=== PATIENT | female | born 1935 | race Caucasian/White ===

== ENCOUNTER 2016-07-28 10:13 | Emergency (ER) | payer OTHER ==
[~2016-07-28] VITALS: Ht 162.6 cm; Wt 97.7 kg
[~2016-07-28 10:13] MED LIST: CARVEDILOL12.5 MG; CYCLOBENZAPRINE5 MG PO; CYMBALTA30 MG PO; FOLIC ACID1 MG PO; FUROSEMIDE40 MG PO; KLOR-CON M2020 MEQ PO; LISINOPRIL10 MG; NEXIUM40 MG PO; PRILOSEC20 MG PO; PROMETHAZINE HC25 M1 PO; RANITIDINE HCL150 M1 PO; SYNTHROID75 MCG; TRAMADOL HCL50 MG PO
[2016-07-28 12:11] LABS: HEMATOCRIT 38.8 % (36.0-46.0); MCH 27.1 PG (29.0-34.0); MCHC 30.9 G/DL (30.0-36.0); MCV 87.6 FL (83-99); MEAN PLAT.VOLUME 10.4 uM^3 (9.5-12.4); PLATELET COUNT 106 K/uL (156-360); RBC DIS.WIDTH-CV 16.8 % (11.8-14.6); RBC DIS.WIDTH-SD 53.7 % (39-53); RED BLOOD COUNT 4.43 M/uL (3.80-5.20); WHITE BLOOD COUNT 5.7 K/uL (4.1-10.2)
[2016-07-28 12:11] LABS: ADD MIUA? YES; BILIRUBIN NEGATIVE; BLOOD SMALL; COLOR YELLOW ((YELLOW)); GLUCOSE (STRIP) NEGATIVE; KETONES NEGATIVE; LEUKOCYTES TRACE; NITRITE POSITIVE; PROTEIN (STRIP) NEGATIVE; SPECIFIC GRAVITY 1.017 (1.000-1.030); UROBILINOGEN 0.2 MG/DL (0.2-1.0)
[2016-07-28 12:38] LABS: BACTERIA 3+ /HPF; CALCIUM OXALATE CRYSTALS 2+ /HPF; EPITHELIAL CELLS 1+ /HPF; MUCUS TRACE /LPF; UCUL ADDED? YES; WHITE BLOOD CELLS 20-30 /HPF (0-5)
[2016-07-28 12:41] LABS: ANION GAP 10 MEQ/L (2-14); CHLORIDE 102 MEQ/L (99-109); DIRECT BILIRUBIN 0.1 mg/dL (0.0-0.3); SAMPLE HEMOLYSIS CHECK 1; SAMPLE ICTERIC CHECK 0; SAMPLE LIPEMIA CHECK 0; SODIUM 138 MEQ/L (136-147); TOTAL BILIRUBIN 0.6 MG/DL (0.0-1.0)
[2016-07-28 12:42] LABS: POTASSIUM 4.6 MEQ/L (3.7-5.4)
[2016-07-28 12:47] LABS: ALKALINE PHOSPHATASE 92 IU/L (3-129); GFR ESTIMATE (CALCULATED) > 59 mL/min/; GLUCOSE 111 mg/dL (70-99); LIPASE 7 U/L (1.0-51.0); UREA NITROGEN (BUN) 14 mg/dL (9-23)
[2016-07-28] MEDS ORDERED: [UNRECOGNIZED DRUG - OTHER] (14:42)
[2016-07-28] MEDS ORDERED: LEVAQUIN750 MG PO (14:42)
[2016-07-28 15:20] VITALS: BP 158/70
== END 2016-07-28 15:21 | disposition home or self-care (01) ==
LOC: EME → EDBD 10:13 → EME 15:21
PROVIDERS: Emergency Medicine
DX: J18.9 Pneumonia, unspecified organism (principal); N39.0 Urinary tract infection, site not specified; K92.2 Gastrointestinal hemorrhage, unspecified; R19.7 Diarrhea, unspecified; R42 Dizziness and giddiness; I10 Essential (primary) hypertension; G89.29 Other chronic pain; Z79.891 Long term (current) use of opiate analgesic; Z87.891 Personal history of nicotine dependence; Z95.1 Presence of aortocoronary bypass graft; Z95.4 Presence of other heart-valve replacement
CPT/HCPCS: 71010; 74177; 80048; 80076; 81003; 83605; 83690; 85027; 87040; 87077; 87086; 87186; 87493; 94640; 99281; 99285; J2405; J7030

== ENCOUNTER → 2016-12-20 | Outpatient (CLI) | payer OTHER ==
[~2016-12-20] MED LIST changes: +LEVAQUIN750 MG PO; +LO-DOSE ASPIRIN81 M1 PO; +LOSARTAN POTASS50 MG PO; +RED YEAST RICE600 M1 PO; +[UNRECOGNIZED DRUG - OTHER]
== END | disposition home or self-care (01) ==
LOC: AMB 13:15
DX: K44.9 Diaphragmatic hernia without obstruction or gangrene (principal); D12.3 Benign neoplasm of transverse colon; K57.30 Diverticulosis of large intestine without perforation or abscess without bleeding; K64.8 Other hemorrhoids; K92.1 Melena; R59.0 Localized enlarged lymph nodes; R63.4 Abnormal weight loss; D64.9 Anemia, unspecified; K21.9 Gastro-esophageal reflux disease without esophagitis; M19.90 Unspecified osteoarthritis, unspecified site; Z86.19 Personal history of other infectious and parasitic diseases; I25.10 Atherosclerotic heart disease of native coronary artery without angina pectoris; Z95.1 Presence of aortocoronary bypass graft; Z95.5 Presence of coronary angioplasty implant and graft; E11.9 Type 2 diabetes mellitus without complications; E21.3 Hyperparathyroidism, unspecified; I10 Essential (primary) hypertension; E03.9 Hypothyroidism, unspecified; I73.9 Peripheral vascular disease, unspecified; G47.33 Obstructive sleep apnea (adult) (pediatric); Z95.2 Presence of prosthetic heart valve; Z79.82 Long term (current) use of aspirin; Z88.8 Allergy status to other drugs, medicaments and biological substances
CPT/HCPCS: 88305; J0360; J3010